=== PATIENT | female | born 1965 ===

== ENCOUNTER → 2017-08-08 | Outpatient (CLI) | payer BC ==
[~2017-08-08] MED LIST: ASPI81CH; LEVSOD100
[2017-08-10 14:18] LABS: HPV Genotype 16 Not Detected (NOTDET); HPV Genotype 18 Not Detected (NOTDET)
[2017-08-19 14:11] LABS: HPV High Risk Other Not Detected (NOTDET)
== END ==
LOC: LAB 16:18
PROVIDERS: Internal Medicine
DX: Z01.419 Encounter for gynecological examination (general) (routine) without abnormal findings (principal)
CPT/HCPCS: 87624; G0145

== ENCOUNTER 2018-02-11 09:16 | Day surgery (SDC) | payer BC ==
[~2018-02-11] VITALS: Ht 157.5 cm; Wt 51.9 kg
== END 2018-02-11 12:15 | disposition home or self-care (01) ==
LOC: ORSCSDS 09:16
PROVIDERS: Internal Medicine Gastroenterology
PROC: 0DBE8ZX Excision of Large Intestine, Via Natural or Artificial Opening Endoscopic, Diagnostic (ICD-10-PCS; principal; 2018-02-11 10:30)
PROC: 0DBH8ZX Excision of Cecum, Via Natural or Artificial Opening Endoscopic, Diagnostic (ICD-10-PCS; principal; 2018-02-11 10:30)
DX: Z12.11 Encounter for screening for malignant neoplasm of colon (principal); D12.0 Benign neoplasm of cecum; K64.8 Other hemorrhoids; Z79.899 Other long term (current) drug therapy
CPT/HCPCS: 88305; J2250

== ENCOUNTER → 2022-09-21 | Outpatient (CLI) | payer BC ==
[2022-09-26 08:11] LABS: HPV 16 Negative (Negative); HPV 18 Negative (Negative); HPV OTHER HR TYPES Positive (Negative)
== END ==
LOC: LAB SHORT 17:30 → LAB 17:30
PROVIDERS: Physician Assistant
DX: Z01.419 Encounter for gynecological examination (general) (routine) without abnormal findings (principal)
CPT/HCPCS: 87624; 87625; 88175

== ENCOUNTER → 2022-10-17 | Outpatient (CLI) | payer BC | END | disposition home or self-care (01) | LOC: PLD 07:30 → LAB SHORT 07:30 | DX: N93.9 Abnormal uterine and vaginal bleeding, unspecified (principal) | CPT/HCPCS: 88305 ==

== ENCOUNTER 2023-02-22 13:23 | Day surgery (SDC) | payer BC ==
[~2023-02-22] VITALS: Ht 154.9 cm; Wt 58.0 kg
[2023-02-22] MEDS ORDERED: Progestero50 MG/1 M1 (13:58)
[2023-02-22] MEDS ORDERED: ERGO400 (13:58)
--- NOTE | 2023-02-22 15:26 | NUR ---
02/22/23 1526 Rosalina De La Cruz LATE ENTRY: PT UPDATED IN DELAY OF START OF HER CASE DUE TO PREVIOUS CASE RUNNING LONGER THAN EXPECTED AFTER TAKING PT TO THE BATHROOM. BED IN LOW, LOCKED POSITION, CALL LIGHT IN REACH.
[2023-02-22 17:06] VITALS: BP 113/70
== END 2023-02-22 17:00 | disposition home or self-care (01) ==
LOC: ORSCSDS 13:23
PROVIDERS: Internal Medicine Gastroenterology
PROC: 0DJD8ZZ Inspection of Lower Intestinal Tract, Via Natural or Artificial Opening Endoscopic (ICD-10-PCS; principal; 2023-02-22 14:30)
DX: Z12.11 Encounter for screening for malignant neoplasm of colon (principal); Z86.010 Personal history of colon polyps; Z87.19 Personal history of other diseases of the digestive system; R10.12 Left upper quadrant pain; Q43.8 Other specified congenital malformations of intestine; K64.8 Other hemorrhoids; Z79.899 Other long term (current) drug therapy
CPT/HCPCS: J0461; J2405; J2704; J7120; Q9968

== ENCOUNTER → 2024-08-07 | Outpatient (CLI) | payer BC ==
[~2024-08-07] MED LIST changes: +ERGO400; +Progestero50 MG/1 M1
[2024-08-14 11:31] LABS: HPV HIGH RISK BY TMA Not Detected; HPV SOURCE Cervical
== END ==
LOC: LAB SHORT 19:31 → LAB 19:31
PROVIDERS: Physician Assistant
DX: Z01.419 Encounter for gynecological examination (general) (routine) without abnormal findings (principal)
CPT/HCPCS: 87624; G0123